=== PATIENT | female | born 1960 | race Caucasian/White ===

== ENCOUNTER 2017-01-08 09:28 | Day surgery (SDC) | payer MEDICAID ==
[~2017-01-08 09:28] MED LIST: RINGER'S SOLUTION,LACTATED 1,000 ML IV PRN
[2017-01-08] MEDS ORDERED: RINGER'S SOLUTION,LACTATED 1,000 ML IV ONE (10:13)
--- NOTE | 2017-01-08 11:26 | OR ---
Operative Report - Dictated Report Narrative: Date: 01/08/2017 Preop dx: Screening for colon cancer Postop dx: Sigmoid diverticulosis, moderate. Internal hemorrhoids. Procedure: Total colonoscopy Surgeon: Isaac Posadas MD Anesthesia: MAC per CUSTOMER SERVICE MANAGER EBL: none Description: After informed consent and appropriate sedation the patient was placed in the left lateral decubitus position. A flexible fiberoptic video colonoscope was introduced and advanced under direct vision without difficulty to the cecum. The usual landmarks were identified. Preparation was excellent and excellent views were obtained. The findings were of a normal cecum, ascending colon, hepatic flexure, transverse colon, splenic flexure, descending colon, sigmoid colon (save for numerous diverticuli), and rectum. Retroflex view showed circumferential minor hemorrhoids. The mucosal color, vasculature and texture were normal throughout. No suspicious masses were seen. The patient tolerated the procedure well without apparent complications and was discharged from the endscopy suite in stable condition.
[2017-01-08 12:59] VITALS: BP 131/80
== END 2017-01-08 09:29 | disposition home or self-care (01) ==
LOC: AMB 09:28
PROVIDERS: ATTEND Specialist
PROC: 0DJD8ZZ Inspection of Lower Intestinal Tract, Via Natural or Artificial Opening Endoscopic (ICD-10-PCS; principal; 2017-01-08 10:50)
DX: Z12.11 Encounter for screening for malignant neoplasm of colon (principal); K57.30 Diverticulosis of large intestine without perforation or abscess without bleeding; K64.8 Other hemorrhoids; I10 Essential (primary) hypertension; E78.5 Hyperlipidemia, unspecified; E11.9 Type 2 diabetes mellitus without complications; J45.909 Unspecified asthma, uncomplicated; F17.200 Nicotine dependence, unspecified, uncomplicated; Z68.27 Body mass index [BMI] 27.0-27.9, adult